=== PATIENT | female | born 1970 | race Caucasian/White ===

== ENCOUNTER → 2016-06-29 | Outpatient (CLI) | payer BC ==
[~2016-06-29] MED LIST: ANAS1TAB19 PO; ATOR80TA PO; CETI10TA84 PO; GOSE3.6I; LORA-741 PO; SERT50TA PO
--- NOTE | 2016-06-29 10:31 | DIAGNOSTIC IMAGING REPORT ---
RENAL ULTRASOUND CLINICAL HISTORY: Elevated parathyroid hormone. Assess for medullary calcinosis. COMPARISON STUDY: None. FINDINGS: The right kidney measures 9.6 cm and the left kidney measures 9.7 cm. No renal calculi or echogenic medullary pyramids. No hydronephrosis. The bladder is unremarkable. The bilateral ureteral jets were identified. There is an 8 mm cyst within the lower pole of the right kidney with peripheral calcification. Normal corticomedullary differentiation and cortical thickness. IMPRESSION: 1. No hydronephrosis or renal calculi. 2. An 8 mm cyst within the lower pole of the right kidney which demonstrates partial peripheral calcification. Electronically signed by: Krishan Franz M.D. 06/29/2016 10:29 AM
--- NOTE | 2016-06-29 10:57 | DIAGNOSTIC IMAGING REPORT ---
KUB CLINICAL HISTORY: Kidney stones COMPARISON STUDY: Renal ultrasound dated 06/29/2016 FINDINGS: There is moderate stool throughout the colon. There are surgical clips within the right upper quadrant consistent with a prior cholecystectomy. The renal shadows are largely obscured by overlying bowel gas and fecal material. No definite calculi are visualized. There are multiple nonspecific pelvic basin calcifications likely representing phleboliths. IMPRESSION: 1. Mild fecal retention 2. No evidence of pathologic bowel dilatation 3. No renal calculi identified on conventional radiographic imaging Electronically signed by: Jamari Gale M.D. 06/29/2016 10:56 AM
== END | disposition home or self-care (01) ==
LOC: C.RAD 09:38
PROVIDERS: ATTEND Internal Medicine
DX: E34.9 Endocrine disorder, unspecified (principal); N28.1 Cyst of kidney, acquired

== ENCOUNTER → 2016-07-02 | Outpatient (CLI) | payer BC ==
--- NOTE | 2016-07-02 20:20 | DIAGNOSTIC IMAGING REPORT ---
NUCLEAR MEDICINE PARATHYROID SCAN WITH SPECT IMAGING CLINICAL HISTORY: ELEVATED PARATHYROID HORMONE COMPARISON STUDY: None FINDINGS: The patient was injected with 22.6 mCi of technetium 99m Cardiolite. 15 minute postinjection and three-hour postinjection imaging was performed. SPECT images were acquired. There are no foci of abnormal increased activity to indicate a parathyroid adenoma. IMPRESSION: No scintigraphic evidence of a parathyroid adenoma Electronically signed by: Jamari Gale M.D. 07/02/2016 8:19 PM Dictated Date/Time: 07/02/2016 8:15 PM
== END | disposition home or self-care (01) ==
LOC: C.NUCL 15:39
PROVIDERS: ATTEND Internal Medicine
DX: E34.9 Endocrine disorder, unspecified (principal)

== ENCOUNTER → 2017-04-22 | Outpatient (CLI) | payer BC | END | disposition home or self-care (01) | LOC: C.MAMM 09:28 | PROVIDERS: ATTEND Orthopaedic Surgery | DX: M81.0 Age-related osteoporosis without current pathological fracture (principal); E21.3 Hyperparathyroidism, unspecified ==